=== PATIENT | male | born 1980 | race African-American/Black ===

== ENCOUNTER 2016-08-07 07:53 | Emergency (ER) | payer OTHER ==
[~2016-08-07] VITALS: Ht 177.8 cm; Wt 93.8 kg
[2016-08-07 08:48] LABS: EOSINOPHIL (%) 3.6 % (0-5); EOSINOPHIL COUNT 0.2 K/uL (0-0.3); IMMATURE GRANULOCYTE (%) 0.2 % (0.0-0.7); IMMATURE GRANULOCYTE COUNT 0.1 K/uL; LYMPHOCYTE COUNT 2.1 K/uL (1.0-2.8); MCH 27.1 PG (29.0-34.0); MCHC 33.4 G/DL (30.0-36.0); MCV 81.2 FL (86-99); MEAN PLAT.VOLUME 9.4 uM^3 (9.0-12.4); MONOCYTE (%) 12.8 % (3-12); MONOCYTE COUNT 0.7 K/uL (0-0.8); NEUTROPHIL (%) 46.5 % (45-76); NEUTROPHIL COUNT 2.6 K/uL (1.8-6.4); PLATELET COUNT 287 K/uL (156-360); RBC DIS.WIDTH-CV 14.1 % (11.8-14.6); RBC DIS.WIDTH-SD 41.1 % (39-53); RED BLOOD COUNT 5.42 M/uL (4.00-5.50); WHITE BLOOD COUNT 5.6 K/uL (4.1-10.2)
[2016-08-07 08:58] LABS: CHLORIDE 106 mEq/L (99-109); POTASSIUM 4.5 mEq/L (3.7-5.4); SODIUM 140 mEq/L (136-147)
[2016-08-07 09:00] LABS: GLUCOSE 89 mg/dL (70-99)
[2016-08-07 09:02] LABS: ANION GAP 7 MEQ/L (2-14)
[2016-08-07 09:04] LABS: GFR ESTIMATE (CALCULATED) > 59 mL/min/
[2016-08-07 09:05] LABS: UREA NITROGEN (BUN) 10 mg/dL (9-23)
[2016-08-07 09:32] LABS: TOTAL BILIRUBIN 0.9 mg/dL (0.0-1.0)
[2016-08-07 09:33] LABS: ALKALINE PHOSPHATASE 61 IU/L (3-129)
[2016-08-07 09:35] LABS: DIRECT BILIRUBIN 0.3 mg/dL (0.0-0.3)
[2016-08-07 09:37] LABS: ADD MIUA? NO; BILIRUBIN NEGATIVE; BLOOD NEGATIVE; COLOR YELLOW ((YELLOW)); GLUCOSE (STRIP) NEGATIVE; KETONES NEGATIVE; LEUKOCYTES NEGATIVE; NITRITE NEGATIVE; PROTEIN (STRIP) NEGATIVE; SPECIFIC GRAVITY 1.016 (1.000-1.030); UROBILINOGEN 0.2 MG/DL (0.2-1.0)
[2016-08-07] MEDS ORDERED: TYLENOL WITH C1 EACH PO (09:56)
[2016-08-07 10:14] VITALS: BP 137/77
== END 2016-08-07 10:15 | disposition home or self-care (01) ==
LOC: EME 07:53
PROVIDERS: Emergency Medicine
DX: R10.32 Left lower quadrant pain (principal); Z88.0 Allergy status to penicillin
CPT/HCPCS: 74176; 80048; 80076; 81003; 85025; 99281; 99284